=== PATIENT | male | born 1965 | race Caucasian/White ===

== ENCOUNTER 2022-03-06 09:05 | Observation (INO) | payer BC ==
[~2022-03-06] VITALS: Ht 188 cm; Wt 140.6 kg
[2022-03-06 09:29] LABS: HEMOGLOBIN 16.5 gm/dl (14.0-17.5); RED BLOOD COUNT 5.32 M/UL (4.20-5.50); WHITE BLOOD COUNT 11.3 K/UL (4.5-11.0)
[2022-03-06 09:54] LABS: BUN/CREATININE RATIO 14 (0-10)
[2022-03-06] MEDS ORDERED: LOSARTAN-HCTZ1 EAC2 PO (12:11)
[2022-03-06] MEDS ORDERED: BYSTOLIC20 MG PO (12:12)
[2022-03-06] MEDS ORDERED: EFFIENT10 MG PO (12:14)
[2022-03-06] MEDS ORDERED: RANOLAZINE ER500 MG PO (12:15)
[2022-03-06] MEDS ORDERED: CRESTOR20 MG PO (12:16)
[2022-03-06] MEDS ORDERED: NAPROXEN500 MG PO (12:18)
[2022-03-06] MEDS ORDERED: COQ-10100 MG PO (12:19)
[2022-03-06] MEDS ORDERED: ASPIRIN EC81 MG PO (12:20)
[2022-03-06] MEDS ORDERED: NEXIUM20 MG PO (12:21)
--- NOTE | 2022-03-06 17:15 | NUR ---
CALLED TO ASK DR. SMALLS ABOUT PT HR BEING 56 AND ORDER FOR NITRO DRIP. STATES TO HOLD DRIP FOR NOW.
[2022-03-07 02:42] LABS: HEMOGLOBIN 14.4 gm/dl (14.0-17.5); RED BLOOD COUNT 4.59 M/UL (4.20-5.50); WHITE BLOOD COUNT 5.7 K/UL (4.5-11.0)
[2022-03-07 02:49] LABS: BUN/CREATININE RATIO 14 (0-10)
[2022-03-07] MEDS ORDERED: RANOLAZINE ER500 MG PO (11:46)
[2022-03-07] MEDS ORDERED: CRESTOR40 MG PO (11:46)
[2022-03-07] MEDS ORDERED: LOSARTAN-HCTZ1 EACH PO (11:46)
== END 2022-03-07 14:46 | disposition home or self-care (01) ==
LOC: ER1 09:05 → CDU 11:49 → MED SURG 4 12:56 → PROG CARE 16:19
PROVIDERS: Physician Assistant; Physician Assistant Medical; ADMIT Internal Medicine Infectious Disease
PROC: 4A023N7 Measurement of Cardiac Sampling and Pressure, Left Heart, Percutaneous Approach (ICD-10-PCS; principal; 2022-03-07)
PROC: B2111ZZ Fluoroscopy of Multiple Coronary Arteries using Low Osmolar Contrast (ICD-10-PCS; 2022-03-07)
DX: R07.89 Other chest pain (principal); I25.10 Atherosclerotic heart disease of native coronary artery without angina pectoris; I10 Essential (primary) hypertension; E78.5 Hyperlipidemia, unspecified; E11.9 Type 2 diabetes mellitus without complications; K21.9 Gastro-esophageal reflux disease without esophagitis; I25.2 Old myocardial infarction; E66.9 Obesity, unspecified; Z68.39 Body mass index [BMI] 39.0-39.9, adult; Z20.822 Contact with and (suspected) exposure to COVID-19; Z95.5 Presence of coronary angioplasty implant and graft; Z72.89 Other problems related to lifestyle; Z87.891 Personal history of nicotine dependence; Z98.890 Other specified postprocedural states; Z90.49 Acquired absence of other specified parts of digestive tract; Z79.82 Long term (current) use of aspirin; Z79.899 Other long term (current) drug therapy
CPT/HCPCS: 36415; 71045; 80048; 80053; 82550; 82553; 84484; 85025; 85379; 85610; 85730; 93005; 96374; 96375; 96376; 99152; 99285; G0378; J0583; J1644; J2250; J2270; J2405; J2550; J3010; Q9967; U0002